=== PATIENT | female | born 1985 | race Native Hawaiian/Other Pacific Islander ===

== ENCOUNTER 2021-11-15 09:37 | Emergency (ER) | payer OTHER ==
[~2021-11-15] VITALS: Ht 170.2 cm; Wt 68.0 kg
[2021-11-15 12:00] VITALS: BP 121/68; TEMP 98
== END 2021-11-15 12:00 | disposition home or self-care (01) ==
LOC: ED 09:37
DX: S93.691A Other sprain of right foot, initial encounter (principal); W22.8XXA Striking against or struck by other objects, initial encounter; Y92.89 Other specified places as the place of occurrence of the external cause
CPT/HCPCS: 99282